=== PATIENT | female | born 1995 | race Caucasian/White ===

== ENCOUNTER 2025-09-10 21:11 | Emergency (ER) | payer MEDICAID, SELFPAY ==
[2025-09-10 21:11] VITALS: BMI 26.2
[2025-09-10 21:24] VITALS: BP 120/79; PULSE 88; RESP 18; TEMP 36.6; O2SAT 99
--- NOTE | 2025-09-10 21:42 | XR_ITS ---
Examination: Abdomen sonogram, Limited Date and time of exam: September 10, 2025, 1022 hours INDICATIONS: Abdominal pain and tenderness this week Technique: Real-time lebron scale transabdominal sonographic images of the upper abdomen obtained. Findings: Cholelithiasis, normal gallbladder wall Normal common bile duct 0.3 cm Pancreatic head 2.5 cm Liver 16 cm fatty infiltration Normal hepatopetal portal venous flow Patent IVC IMPRESSION: Cholelithiasis, negative for cholecystitis
--- NOTE | 2025-09-10 21:42 | XR_ITS ---
Examination: CT abdomen and pelvis without contrast. Coronal 3-D reconstructions. Sagittal 2-D reconstructions. Date and time of exam: September 10, 2025, 11:30 p.m. INDICATIONS: Bilateral lower abdominal pain beginning 3 hours ago CTDI: vol (mGy): 7.18 DLP: (mGycm): 384 Technique: Axial images of the abdomen have been obtained, 3 mm slice thickness Intravenous contrast material has not been administered. Low dose protocols were performed. One or more of the following dose reduction techniques were used; automated exposure control, adjustment of the mA and/or KV according to patient size, use of iterative reconstruction technique. Findings: No focal liver or splenic lesions Gallstones No pancreatic or adrenal mass No renal or ureteral calculi, no hydronephrosis 11 mm fat-containing umbilical hernia Normal appendix No bowel obstruction Anteverted uterus with satisfactory position intrauterine device No adnexal mass Urinary bladder intact No diverticulitis Moderate disc narrowing L5 IMPRESSION: Cholelithiasis No renal or ureteral calculi, no hydronephrosis Normal appendix No bowel obstruction diverticulitis or free air Given the patient's presentation, consider pelvic sonography follow-up
--- NOTE | 2025-09-10 22:01 | EDNOTE_ITS ---
ED Abdominal Pain RME/HPI General Chief Complaint: Abdominal Pain Stated complaint: BLQ ABD PAIN X 3 HRS Time seen by provider: 09/10/25 21:43 Arrival date/time: 09/10/25 21:11 RME / HPI RME / HPI narrative: See [facility] for Dr. Fallon's HPI Documentation. Related Data Home Medications ?Medication ?Instructions ?Recorded ?Confirmed prenat.vits,glen,vxf-[id number] 1 tab PO QDAY PRN VITAM INS 08/24/18 02/04/21 ( Vitamin tablet) Previous Rx's ?Medication ?Instructions ?Recorded acetaminophen 300 mg-codeine 30 mg 2 tab PO Q8H PRN pa in #20 tabs 09/11/25 tablet amoxicillin 875 mg-potassium 1 tab PO BID 5 days #10 t abs 09/11/25 clavulanate 125 mg tablet ondansetron 4 mg disintegrating 4 mg PO TID PRN nausea and 09/11/25 tablet vomiting 30 days #10 tabs Allergies Allergy/AdvReac Type Severity Reaction Status Date / Time No Known Allergies Allergy Verified 09/10/25 21:14 Review of Systems Review of Systems Systems Reviewed: All systems reviewed, normal except as documented Past Medical History Past Medical History CARDIAC: Positive Cardiac Disorders and Hypertension (WITH FIRST BABY.) REPRODUCTIVE: Positive Previous Pregnancies OTHER HISTORY: Positive Hospitalization Family History FAMILY HISTORY: Positive Family Surgery (MGM rotator cuff and leg surgery) ED Exam Narrative Physical exam: See [facility] for Dr. Fallon's Physical Exam Documentation. Course Quality Measures none Orders Category Date Time Status Bedside COVID-19 Antigen Test NOW Care 09/10/25 21:41 Completed Saline [Insert IV] NOW Care 09/10/25 21:[address] abdomen pelvis wo con Stat Exams 09/10/25 21:42 Completed US gall bladder Stat Exams 09/10/25 21:42 Completed Amylase Stat Lab 09/10/25 22:22 Completed Bilirubin,Direct Stat Lab 09/10/25 22:22 Completed CBC Stat Lab 09/10/25 22:22 Completed CMP [Comprehensive Metabolic Panel] Stat Lab 09/10/25 22:22 Completed HCG Qualitative,Urine Stat Lab 09/10/25 22:06 Completed Influenza A & B Rapid Panel Stat Lab 09/10/25 22:37 Completed Lipase Stat Lab 09/10/25 22:22 Completed Magnesium Stat Lab 09/10/25 22:22 Completed UA, C/S IF [Urinalysis, C/S if Indicated] Stat Lab 09/10/25 22:06 Completed Urine Culture Stat Lab 09/10/25 22:06 Received Ketorolac Inj [Toradol Inj] Med 09/10/25 21:41 Discontinued 30 mg IVP X1 ONE Morphine* Inj Med 09/10/25 21:41 Discontinued 4 mg IV X1 ONE Ondansetron Inj [Zofran Inj] Med 09/10/25 21:41 Discontinued 4 mg IVP X1 ONE Ondansetron Inj [Zofran Inj] Med 09/11/25 01:00 Discontinued 4 mg IVP X1 ONE POTASSIUM CHL 10% Liq 15 ML Med 09/10/25 23:17 Discontinued 40 meq PO X1 ONE Sodium Chloride 0.9% 1000 ml [Ns] 1,000 ml Med 09/10/25 21:41 Discontinued IV 999 mls/hr cefTRIAXone/D5w 1gm IV premix [Rocephin/D5w 1gm IV Med 09/10/25 23:55 Discontinued premix] 1 g in 50 ml IV X1 Vital Signs Vital signs: Vital Signs Temperature 98 F 09/10/25 21:24 Pulse Rate 88 09/10/25 21:24 Respiratory Rate 18 09/10/25 21:24 Blood Pressure 120/79 09/10/25 21:24 Pulse Oximetry (%) 99 09/10/25 21:24 Oxygen Delivery Method Room Air 09/10/25 21:24 Abdominal Pain MDM MDM Narrative MDM Narrative:: This section includes all my notes and documentations, including HPI, PE, and ED course. Edgardo Fallon MD HPI: 30 y/o female presents with severe abdominal pain and vomiting for 6 hours. She localizes the pain in the right quadrants, has difficulty localizing further. No other complaints. ROS: All negative except as documented in HPI. Physical Exam: General: Alert and oriented. In severe pain. Eyes: Conjunctivae and lids clear. ENT: No nasal congestion. Neck: Supple. Heart: RRR. Lungs: No respiratory distress. Good air movement. No rhonchi, wheezing, rales. Abdomen: Soft with right quadrant tenderness. Normal bowel sounds. No distension. No rebound or guarding. Back: No CVA tenderness. Skin: Warm and dry. Neuro: Alert and oriented X 3. I reviewed all diagnostic test results: My review of the Abdomen/Pelvis CT report is cholelithiasis. My review of the Gall Bladder US report is cholelithiasis. Blood tests remarkable for WBC 9.6, K 3.3. UA showed 19 WBC and no squamous epithelial cells. Covid/Influenza: Negative. At this point, diagnoses include: UTI Gallstones Treatment here included: IVF Toradol 30 mg IV Morphine 4 mg IV Zofran 4 mg IV Rocephin 1 g IV She felt much better. Recommended outpatient care. Based on my best medical judgment, made decision no further evaluation or treatment indicated at this time. Patient understands and agrees to the discharge instructions customized and printed, see below. Discharge Instructions from Dr. Fallon: 1. After evaluation, your symptoms are due to gallstone(s).? You need gallbladder to help digest fatty foods. 2. So to prevent future attacks, avoid all fatty and oily and greasy and buttery and dairy foods.? This usually means take out and fast food restaurants. 3. Zofran for nausea/vomiting.? Tylenol with codeine for severe pain.? Clear liquid diet for 24 hours then advance diet slowly as tolerated. 4. Take Augmentin for your urine infection. To flush your urine system, increase oral fluid and maintain clear urine. If dark or yellow, increase oral fluid. 5. See a private doctor on 09/13/2025 for recheck and further care. Ask for help seeing a general surgeon to discuss elective surgery. Asked to review the final urine culture results from today. 6. Seek immediate medical care with intolerable pain, fever, or with any concerns. Edgardo Fallon MD Patient data External records reviewed:: [facility] previous records (Reviewed prior ED records from 11/29/22. Patient was seen for Cardiac arrhythmia.) Clinical information provided by:: patient Social determinants that could affect healthcare access:: none Patient has the following chronic illnesses:: None reported How is presenting disease/condition affected by chronic disease/condition?: no chronic disease Evaluation data The following diagnostics were reviewed and interpreted by me:: lab results and radiology exam(s) Lab and/or radiology exams considered but not ordered:: None Interpretation Summary: I reviewed all diagnostic test results: My review of the Abdomen/Pelvis CT report is cholelithiasis. My review of the Gall Bladder US report is cholelithiasis. Blood tests remarkable for WBC 9.6, K 3.3. UA showed 19 WBC and no squamous epithelial cells. Covid/Influenza: Negative. Medications / Prescriptions Medications or Prescriptions considered but not ordered:: None Medication administrations:: Medication Administration History Discontinued Medications Sodium Chloride (Ns) 1,000 mls @ 999 mls/hr IV .Q1H1M ONE Stop: 09/10/25 22:41 Last Infusion: 09/11/25 00:55 Dose: Infused Documented By: Admin: 09/10/25 22:27 Dose: 999 mls/hr Documented By: LIOS Ceftriaxone Sodium/Dextrose (Rocephin/D5w 1gm Iv Premix) 1 g in 50 mls @ 100 mls/hr IV X1 ONE Stop: 09/11/25 00:24 Last Infusion: 09/11/25 00:59 Dose: Infused Documented By: Admin: 09/11/25 00:26 Dose: 100 mls/hr Documented By: LOIS Ketorolac Tromethamine (Ketorolac Inj 30 Mg/Ml Vial) 30 mg IVP X1 ONE Stop: 09/10/25 21:42 Last Admin: 09/10/25 22:26 Dose: 30 mg Documented By: LOIS Morphine Sulfate (Morphine Sulf Inj 4 Mg/Ml Vial) 4 mg IV X1 ONE Stop: 09/10/25 21:42 Last Admin: 09/10/25 22:26 Dose: 4 mg Documented By: OLIS Ondansetron HCl (Ondansetron Inj 2 Mg/Ml Inj 2 Ml) 4 mg IVP X1 ONE; Protocol Stop: 09/10/25 21:42 Last Admin: 09/10/25 22:26 Dose: 4 mg Documented By: LOIS Ondansetron HCl (Ondansetron Inj 2 Mg/Ml Inj 2 Ml) 4 mg IVP X1 ONE; Protocol Stop: 09/11/25 01:01 Last Admin: 09/11/25 01:06 Dose: 4 mg Documented By: LOIS Potassium Chloride (Potassium Chloride 10% 20 Meq/15 Ml Udc) 40 meq PO X1 ONE Stop: 09/10/25 23:18 Last Admin: 09/11/25 00:44 Dose: 40 meq Documented By: LOIS Treatment here included: IVF Toradol 30 mg IV Morphine 4 mg IV Zofran 4 mg IV Rocephin 1 g IV Consultations Consultation(s) initiated? (list below): No Diagnosis Differential diagnosis abdominal pain: abdominal pain, acute appendicitis, calculus of kidney, constipation, diverticulitis, gastroenteritis, pancreatitis, small bowel obstruction and other (Cholecystitis, Cholelithiasis) Most likely diagnosis given after review of the tests above:: UTI Gallstones Admission Indicated Admission indicated?: not indicated Explain why admission is indicated or not indicated:: With significant improvement and no condition needing emergent intervention, there was no indication for admission. Admission Request Was there a request for admission?: No Disposition Plan Disposition Plan: Discharge Discharge Attestation Discharge Attestation: The patient and all family members were given an opportunity to ask questions and understood the discharge instructions. Discharge instructions specifically effects, indications for sooner follow up or return to the emergency department, and the expected course of current diagnosis. Patient condition: Stable Discharge Plan Plan Patient Disposition: HOME (Self Care) Prescriptions/Referrals Prescriptions/Med Rec: New acetaminophen-codeine 300-30 mg tablet 2 tab PO Q8H MDD 6 PRN (Reason: pain) Qty: 20 0RF ondansetron 4 mg tablet,disintegrating 4 mg PO TID PRN (Reason: nausea and vomiting) 30 Days Qty: 10 0RF amoxicillin-pot clavulanate 875-125 mg tablet 1 tab PO BID 5 Days Qty: 10 0RF No Action Vitamin Tablet 1 tab PO QDAY PRN (Reason: VITAMINS) Problem List Clinical Impression: Gallstones, UTI (urinary tract infection) Patient/Caregiver Discharge Instructions Discharge Activity: activity as tolerated Education Materials: ED Gallstones with Biliary Colic, ED CYSTITIS Female Adult Additional Instructions: Discharge Instructions from Dr. Fallon: 1. After evaluation, your symptoms are due to gallstone(s).? You need gallbladder to help digest fatty foods. 2. So to prevent future attacks, avoid all fatty and oily and greasy and buttery and dairy foods.? This usually means take out and fast food restaurants. 3. Zofran for nausea/vomiting.? Tylenol with codeine for severe pain.? Clear liquid diet for 24 hours then advance diet slowly as tolerated. 4. Take Augmentin for your urine infection. To flush your urine system, increase oral fluid and maintain clear urine. If dark or yellow, increase oral fluid. 5. See a private doctor on 09/13/2025 for recheck and further care. Ask for help seeing a general surgeon to discuss elective surgery. Asked to review the final urine culture results from today. 6. Seek immediate medical care with intolerable pain, fever, or with any howard rns. Print Language: Frisian Stand Alone Forms: Lisseth Award Info., Patient Portal Info Letter
[2025-09-10 22:11] VITALS: BP 128/75; PULSE 74; RESP 15; TEMP 36.9; O2SAT 100
[2025-09-10 22:13] LABS: Collection Type, Urine Clean Catch
[2025-09-10 22:26] LABS: Bilirubin,Urine Negative (Negative); Blood,Urine Negative (Negative); Clarity,Urine Clear (Clear/Hazy); Color,Urine Lt-Yellow (Lt Yel-Yel); Glucose, Urine Negative (Negative); Ketones,Urine Trace (Negative); Leukocyte Esterase,Urine Negative (Negative); Nitrite,Urine Negative (Negative); PH,Urine 6.0 (5.0-7.0); Protein,Urine Trace (Neg - Trace); RBC,Urine 2 /hpf (0-3); Specific Gravity,Urine 1.028 (1.001-1.035); Squamous Epithelial Cell,Urine 2 /hpf (0-5); Urobilinogen,Urine Negative mg/dL (0.0-1.0); WBC,Urine 19 /hpf (0-5)
[2025-09-10] MEDS: MORPHINE SULF INJ 4 MG/ML VIAL IV (22:26)
[2025-09-10] MEDS: ONDANSETRON INJ 2 MG/ML INJ 2 ML 4 MG IVP (22:26)
[2025-09-10] MEDS: KETOROLAC INJ 30 MG/ML VIAL IVP (22:26)
[2025-09-10] MEDS: SODIUM CHLORIDE 0.9% 1000 ML 1,000 ML 999 ML IV (22:27)
[2025-09-10 22:31] LABS: HCG Qualitative,Urine Negative
[2025-09-10 22:32] LABS: Basophils # (Auto) 0.0 Thou/mm3 (0.0-0.2); Basophils % (Auto) 0 % (0-2.5); Eosinophils # (Auto) 0.0 Thou/mm3 (0.0-0.5); Eosinophils % (Auto) 0 % (0-10); Hematocrit 34.9 % (36.0-46.0); Hemoglobin 11.1 g/dL (12.0-16.0); Immature Granulocytes Auto 0.02 Thou/mm3 (0.00-0.00); Lymphocytes # (Auto) 1.1 Thou/mm3 (1.0-4.8); Lymphocytes % (Auto) 11 % (10-50); Mean Corpuscular HGB Conc 31.8 g/dl (31.0-37.0); Mean Corpuscular Hemoglobin 25.9 pg (25.0-35.0); Mean Corpuscular Volume 82 fL (80-100); Monocytes # (Auto) 0.6 Thou/mm3 (0.0-0.8); Monocytes % (Auto) 6 % (0-12); Neutrophils # (Auto) 7.9 Thou/mm3 (1.8-7.7); Neutrophils % (Auto) 83 % (37-80); Nucleated Red Blood Cell # 0.00 Thou/mm3 (0.00-0.00); Nucleated Red Blood Cell % 0 /100 WBC (0); Platelet Count 219 Thou/mm3 (140-440); RDW Standard Deviation 46.2 fL (36.4-46.3); Red Blood Count 4.28 Miln/mm3 (4.00-5.20); White Blood Count 9.6 Thou/mm3 (3.6-11.0)
[2025-09-10 22:32] LABS: Culture Indicated,Urine Yes
[2025-09-10 22:53] LABS: Alanine Aminotransferase 11 U/L (10-49); Albumin, Serum 4.5 gm/dL (3.5-5.0); Albumin/Globulin Ratio 1.6 (1.2-2.2); Alkaline Phosphatase 43 U/L (46-116); Amylase 79 U/L (30-118); Anion Gap 12 (7-16); Aspartate Amino Transferase 22 U/L (0-34); BUN/Creatinine Ratio 11 Ratio (12-20); Bilirubin,Direct < 0.1 mg/dL (0.0-0.3); Bilirubin,Total 0.3 mg/dL (0.3-1.2); Blood Urea Nitrogen 8 mg/dL (9-23); Calcium 8.7 mg/dL (8.3-10.6); Calcium (Corrected) 8.7 mg/dL (8.5-10.1); Carbon Dioxide 25.3 mMol/L (20.0-31.0); Chloride 104 mMol/L (98-107); Creatinine (Component) 0.7 mg/dL (0.6-1.3); Estimated Creatinine Clearance 110.1 mL/min (>60); Globulin 2.9 gm/dL (2.3-3.5); Glucose 106 mg/dL (74-106); Lipase 40 U/L (12-53); Magnesium 1.6 mg/dL (1.6-2.6); Osmolality,Calculated 279 (275-295); Potassium 3.3 mMol/L (3.4-5.1); Sodium 141 mMol/L (136-145); Total Protein 7.4 gm/dL (5.7-8.2); eGFR > 60 See Note
[2025-09-10 22:58] LABS: Influenza A Ag Negative; Influenza B Ag Negative
[2025-09-11] MEDS: cefTRIAXone/D5w 1gm IV premix 1 G/50 ML BAG IV (00:26)
[2025-09-11] MEDS: POTASSIUM CHLORIDE 10% 20 MEQ/15 ML UDC 40 MEQ PO (00:44)
[2025-09-11] MEDS: ONDANSETRON INJ 2 MG/ML INJ 2 ML 4 MG IVP (01:06)
[2025-09-11 01:07] VITALS: BP 115/77; PULSE 77; RESP 18; TEMP 36.6; O2SAT 98
== END 2025-09-11 01:07 | disposition home or self-care (01) ==
PROVIDERS: Emergency Provider Emergency Medicine
DX: N39.0 Urinary tract infection, site not specified (principal); K80.20 Calculus of gallbladder without cholecystitis without obstruction
CPT/HCPCS: 36415; 74176; 76705; 80053; 81001; 81025; 82150; 82248; 83690; 83735; 85025; 87086; 87502; 87811; 96361; 96365; 96375; 96376; 99283; J0696; J1885; J2270; J2405; J7030; A9270

== ENCOUNTER 2025-09-11 14:57 | Emergency (ER) | payer MEDICAID, SELFPAY ==
[2025-09-11 14:58] VITALS: BMI 26.2
[2025-09-11 15:21] VITALS: BP 120/77; PULSE 77; RESP 16; TEMP 36.9; O2SAT 100
--- NOTE | 2025-09-11 15:30 | XR_ITS ---
Examination: Pelvic ultrasound, transabdominal, complete Technique: Transabdominal ultrasound of the pelvis performed using grayscale imaging Date and time of exam: September 11, 2025, 1747 hours INDICATIONS: Right upper abdominal tenderness and pain today FINDINGS: Uterus 8.9 cm intrauterine device satisfactory position No uterine mass or intrauterine gestation Mild fluid in the cul-de-sac Right ovary 3.1 cm arterial flow Left ovary 2.6 cm arterial flow IMPRESSION: Intrauterine device satisfactory position, no uterine mass Mild fluid in the cul-de-sac
--- NOTE | 2025-09-11 15:32 | EDRME_ITS ---
Rapid Medical Screening Exam [facility] Arrival date/time: 09/11/25 14:57 30-year-old female with no known medical history presents to the emergency room with a chief complaint of lower abdominal/pelvic pain, vomiting and nausea x 2 days I have greeted and performed a focused initial assessment of this patient. A comprehensive ED assessment and evaluation of the patient, analysis of all test results, and completion of the medical decision making process will be conducted by additional ED providers. Chief Complaint: Abdominal Pain Vital signs: Vital Signs Temperature 98.4 F 09/11/25 15:21 Pulse Rate 77 09/11/25 15:21 Respiratory Rate 16 09/11/25 15:21 Blood Pressure 120/77 09/11/25 15:21 Pulse Oximetry (%) 100 09/11/25 15:21 Oxygen Delivery Method Room Air 09/11/25 15:21 Vital signs reviewed by provider: Yes
[2025-09-11] MEDS: METOCLOPRAMIDE LIQD 10 MG/10 ML UDC PO (15:36)
[2025-09-11 15:52] LABS: Basophils # (Auto) 0.0 Thou/mm3 (0.0-0.2); Basophils % (Auto) 0 % (0-2.5); Eosinophils # (Auto) 0.0 Thou/mm3 (0.0-0.5); Eosinophils % (Auto) 0 % (0-10); Hematocrit 33.9 % (36.0-46.0); Hemoglobin 10.5 g/dL (12.0-16.0); Immature Granulocytes Auto 0.01 Thou/mm3 (0.00-0.00); Lymphocytes # (Auto) 0.9 Thou/mm3 (1.0-4.8); Lymphocytes % (Auto) 18 % (10-50); Mean Corpuscular HGB Conc 31.0 g/dl (31.0-37.0); Mean Corpuscular Hemoglobin 25.8 pg (25.0-35.0); Mean Corpuscular Volume 83 fL (80-100); Monocytes # (Auto) 0.3 Thou/mm3 (0.0-0.8); Monocytes % (Auto) 6 % (0-12); Neutrophils # (Auto) 3.7 Thou/mm3 (1.8-7.7); Neutrophils % (Auto) 75 % (37-80); Nucleated Red Blood Cell # 0.00 Thou/mm3 (0.00-0.00); Nucleated Red Blood Cell % 0 /100 WBC (0); Platelet Count 213 Thou/mm3 (140-440); RDW Standard Deviation 47.6 fL (36.4-46.3); Red Blood Count 4.07 Miln/mm3 (4.00-5.20); White Blood Count 4.9 Thou/mm3 (3.6-11.0)
[2025-09-11 16:34] LABS: Alanine Aminotransferase 10 U/L (10-49); Albumin, Serum 4.6 gm/dL (3.5-5.0); Albumin/Globulin Ratio 1.8 (1.2-2.2); Alkaline Phosphatase 43 U/L (46-116); Anion Gap 10 (7-16); Aspartate Amino Transferase 21 U/L (0-34); BUN/Creatinine Ratio 9 Ratio (12-20); Bilirubin,Total 0.5 mg/dL (0.3-1.2); Blood Urea Nitrogen 6 mg/dL (9-23); Calcium 8.7 mg/dL (8.3-10.6); Calcium (Corrected) 8.7 mg/dL (8.5-10.1); Carbon Dioxide 24.3 mMol/L (20.0-31.0); Chloride 108 mMol/L (98-107); Creatinine (Component) 0.7 mg/dL (0.6-1.3); Estimated Creatinine Clearance 110.1 mL/min (>60); Globulin 2.5 gm/dL (2.3-3.5); Glucose 99 mg/dL (74-106); Lipase 32 U/L (12-53); Osmolality,Calculated 280 (275-295); Potassium 4.2 mMol/L (3.4-5.1); Sodium 142 mMol/L (136-145); Total Protein 7.1 gm/dL (5.7-8.2); eGFR > 60 See Note
[2025-09-11 19:29] LABS: Collection Type, Urine Clean Catch
[2025-09-11 19:59] LABS: Bilirubin,Urine Negative (Negative); Blood,Urine Negative (Negative); Clarity,Urine Clear (Clear/Hazy); Color,Urine Yellow (Lt Yel-Yel); Glucose, Urine Negative (Negative); Ketones,Urine 2+ (Negative); Leukocyte Esterase,Urine Negative (Negative); Nitrite,Urine Negative (Negative); PH,Urine 5.5 (5.0-7.0); Protein,Urine Trace (Neg - Trace); RBC,Urine 17 /hpf (0-3); Specific Gravity,Urine 1.032 (1.001-1.035); Squamous Epithelial Cell,Urine 2 /hpf (0-5); Urobilinogen,Urine Negative mg/dL (0.0-1.0); WBC,Urine 1 /hpf (0-5)
[2025-09-11 20:09] LABS: HCG Qualitative,Urine Negative
--- NOTE | 2025-09-11 20:09 | PD.EDABDPN ---
ED Abdominal Pain RME/HPI General Chief Complaint: Abdominal Pain Stated complaint: RT SIDE ABD PAIN DX WITH GALLSTONES Time seen by provider: 09/11/25 20:08 Arrival date/time: 09/11/25 14:57 Source: patient Limitations: no limitations RME / HPI RME / HPI narrative: 09/11/25 14:57 30-year-old female with no known medical history presents to the emergency room with a chief complaint of lower abdominal/pelvic pain, vomiting and nausea x 2 days I have greeted and performed a focused initial assessment of this patient. A comprehensive ED assessment and evaluation of the patient, analysis of all test results, and completion of the medical decision making process will be conducted by additional ED providers. Dr. Adair evaluation Patient is a 30-year-old female is in emergency department with concerns for lower abdominal and pelvic pain as well as vomiting. Patient has a history of cholelithiasis, does not have any allergies. Related Data Home Medications ?Medication ?Instructions ?Recorded ?Confirmed prenat.vits,glen,cav-[id number] 1 tab PO QDAY PRN VITAMINS 08/24/18 02/04/21 ( Vitamin tablet) Previous Rx's ?Medication ?Instructions ?Recorded acetaminophen 300 mg-codeine 30 mg 2 tab PO Q8H PRN pain #20 tabs 09/11/25 tablet ondansetron 4 mg disintegrating 4 mg PO TID PRN nausea and 09/11/25 tablet vomiting 30 days #10 tabs Allergies Allergy/AdvReac Type Severity Reaction Status Date / Time No Known Allergies Allergy Verified 09/11/25 15:00 ED Exam General Limitations: Present no limitations General appearance: Present alert and in no apparent distress Head Head exam: Present atraumatic and normocephalic Eye Eye exam: Present normal appearance and PERRL ENT ENT exam: Present normal exam and normal oropharynx Neck Neck exam: Present normal inspection Chest Chest inspection: Present symmetric chest wall rise Respiratory Respiratory exam: Absent respiratory distress Cardiovascular Cardiovascular exam: Present regular rate and normal rhythm Abdominal Exam Abdominal exam: Absent soft, distention, tenderness or guarding Neurological Exam Neurological exam: Present alert and other (No focal neurodeficits) Skin Skin exam: Present warm, dry and intact Course Quality Measures none Orders Category Date Time Status US pelvic complete Stat Exams 09/11/25 15:30 Completed CBC Stat Lab 09/11/25 15:34 Completed CMP [Comprehensive Metabolic Panel] Stat Lab 09/11/25 15:34 Completed HCG Qualitative,Urine Stat Lab 09/11/25 19:23 Completed Lipase Stat Lab 09/11/25 15:34 Completed UA [Urinalysis] Stat Lab 09/11/25 19:23 Completed Urine Culture Stat Lab 09/11/25 19:23 Completed Metoclopramide [Reglan] Med 09/11/25 15:30 Discontinued 10 mg PO X1 ONE Vital Signs Vital signs: Vital Signs Temperature 98.4 F 09/11/25 15:21 Pulse Rate 77 09/11/25 15:21 Respiratory Rate 16 09/11/25 15:21 Blood Pressure 120/77 09/11/25 15:21 Pulse Oximetry (%) 100 09/11/25 15:21 Oxygen Delivery Method Room Air 09/11/25 15:21 Abdominal Pain MDM MDM Narrative MDM Narrative:: Patient is a 30-year-old female to the emergency room and concerns for abdominal pain and pelvic pain. Vital signs and exam as listed. Concern for ovarian torsion, urinary tract infection, pyelonephritis, among others. Prior provider evaluated patient. Ordered labs pelvic ultrasound offered medication for symptom relief. Labs with evidence of normocytic anemia, chronic at her baseline, no significant acute electrolyte nor metabolic disturbance, no significant transaminitis, lipase not elevated urinalysis nitrate negative, leukocyte esterase negative, 17 RBCs 1 WBC patient test Pelvic ultrasound with evidence of IUD, no other abnormalities. Patient has flow to bilateral ovaries. On reevaluation patient hemodynamically stable not distressed. Will discharge home with close return precautions follow-up with primary doctor. Patient was concerned that she has had her symptoms on and off over the last couple days. I let her know that I would consult our on-call surgeon to see if she would be a candidate for elective cholecystectomy. I discussed the case with on-call surgeon Dr. Rubin. States that she can make an appointment with him in his clinic this week for surgical planning. On reevaluation patient hemodynamically stable not in distress, tolerating oral intake. Will dc to home with close return precautions and follow up with pcp and surgeon Patient data External records reviewed:: [facility] previous records Clinical information provided by:: patient Social determinants that could affect healthcare access:: none Patient has the following chronic illnesses:: See MDM How is presenting disease/condition affected by chronic disease/condition?: no chronic disease Evaluation data The following diagnostics were reviewed and interpreted by me:: lab results and radiology exam(s) Lab and/or radiology exams considered but not ordered:: None Interpretation Summary: See MDM Medications / Prescriptions Medications or Prescriptions considered but not ordered:: None Medication administrations:: Medication Administration History Discontinued Medications Metoclopramide HCl (Metoclopramide Liqd 10 Mg/10 Ml Udc) 10 mg PO X1 ONE Stop: 09/11/25 15:31 Last Admin: 09/11/25 15:36 Dose: 10 mg Documented By: OA See above Consultations Consultation(s) initiated? (list below): No Diagnosis Differential diagnosis abdominal pain: other (See MDM) Most likely diagnosis given after review of the tests above:: Cholelithiasis, symptomatic biliary colic Admission Indicated Admission indicated?: not indicated Admission Request Was there a request for admission?: No Disposition Plan Disposition Plan: Discharge Discharge Attestation Discharge Attestation: The patient and all family members were given an opportunity to ask questions and understood the discharge instructions. Discharge instructions specifically effects, indications for sooner follow up or return to the emergency department, and the expected course of current diagnosis. Patient condition: Stable Discharge Plan Plan Patient Disposition: HOME (Self Care) Prescriptions/Referrals Prescriptions/Med Rec: No Action Vitamin Tablet 1 tab PO QDAY PRN (Reason: VITAMINS) acetaminophen-codeine 300-30 mg tablet 2 tab PO Q8H MDD 6 PRN (Reason: pain) Qty: 20 0RF ondansetron 4 mg tablet,disintegrating 4 mg PO TID PRN (Reason: nausea and vomiting) 30 Days Qty: 10 0RF Referrals: Aneudy Stevens MD [Primary Care Provider, Family Practice] - In 1 week Ethan Rubin MD [Physician, General Surgery] - In 1 week Problem List Clinical Impression: Gallstones Patient/Caregiver Discharge Instructions Education Materials: Treating Gallstones Additional Instructions: Please follow-up with your primary care doctor within 1 to 2 days. Today I discussed the case with our on-call surgeon Dr. Rubin. He would like to see you in clinic this week for outpatient management of your biliary colic. Please contact them at his office at the information below. [address]elia [address], [address] [facility] [id number] Print Language: Bolivian Stand Alone Forms: Lisseth Award Info., Patient Portal Info Letter
== END 2025-09-11 21:24 | disposition home or self-care (01) ==
PROVIDERS: Nurse Practitioner Family; Emergency Provider Emergency Medicine; PCP Family Medicine
DX: K80.20 Calculus of gallbladder without cholecystitis without obstruction (principal)
CPT/HCPCS: 36415; 76856; 80053; 81001; 81025; 83690; 85025; 87086; 99281; A9270